=== PATIENT | male | born 1965 | race Caucasian/White ===

== ENCOUNTER 2017-11-25 17:44 | Emergency (ER) | payer BC ==
[2017-11-25 18:24] VITALS: BP 129/84
[2017-11-25] MEDS ORDERED: Fluorescein Sod TOPICAL 0.6* 0.6 MG TEST OPHTHALMIC ONE (18:50)
[2017-11-25] MEDS ORDERED: Tetan/Diph/Pertus SYR(Tdap)* 0.5 ML SYR(BOOSTRIX) use SYR IM ONE (18:51)
[2017-11-25] MEDS ORDERED: Tetracaine 0.5% OPTH.SOL 4 ML* 1 DROP BTL RIGHT EYE ONE (18:51)
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
== END 2017-11-25 19:24 | disposition left against medical advice (07) ==
LOC: UCCORT 17:44
DX: T15.01XA Foreign body in cornea, right eye, initial encounter (principal); S05.91XA Unspecified injury of right eye and orbit, initial encounter; F17.210 Nicotine dependence, cigarettes, uncomplicated; Z88.1 Allergy status to other antibiotic agents; W39.XXXA Discharge of firework, initial encounter; Y92.9 Unspecified place or not applicable
CPT/HCPCS: 90471; 90715; 99212; A9270-GY; G0463

== ENCOUNTER 2018-02-28 21:48 | Emergency (ER) | payer BC ==
[2018-02-28 21:56] VITALS: BP 125/80
[2018-02-28] MEDS ORDERED: Clarithromycin TAB* 500 MG PO ONE (22:03)
[2018-02-28] MEDS ORDERED: predniSONE TAB* 20 MG PO ONE (22:04)
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
== END 2018-02-28 22:12 | disposition home or self-care (01) ==
LOC: UCCORT 21:48
DX: J20.9 Acute bronchitis, unspecified (principal); J32.9 Chronic sinusitis, unspecified; Z88.1 Allergy status to other antibiotic agents; F17.210 Nicotine dependence, cigarettes, uncomplicated
CPT/HCPCS: 99212; A9270-GY; G0463; J7512

== ENCOUNTER 2018-07-28 19:26 | Emergency (ER) | payer BC ==
[2018-07-28 19:34] VITALS: BP 112/73
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
[2018-07-28] MEDS ORDERED: Naproxen TAB* 250 MG PO ONE (20:55)
--- NOTE | 2018-07-29 09:17 | UC ---
- EKG/XRAY/CT XRAY: Shoulder and cervical - No acute osseous injury Course/Dx - Diagnoses Provider Diagnoses: Left shoulder tendonitis, Left cervical radiculopathy Discharge - Sign-Out/Discharge Documenting (check all that apply): Post-Discharge Follow Up All imaging exams completed and their final reports reviewed: Yes - Discharge Plan Condition: Stable Disposition: HOME Prescriptions: Naproxen [Naprosyn 500 mg tab] 500 mg PO BID PRN #30 tablet PRN Reason: Pain Patient Education Materials: Cervical Radiculopathy (ED), Tendinitis (ED) Referrals: Guillaume Escobar MD [Primary Care Provider] - As Soon As Possible Additional Instructions: official XR reading pending - continue supportive care and follow up with PCP blood work pending - Billing Disposition and Condition Condition: STABLE Disposition: Home
[2018-07-29 10:28] LABS: ABS Basophils 0.1 10^3/ul (0-0.2); ABS Eosinophils 0.3 10^3/ul (0-0.6); ABS Lymphocytes 3.5 10^3/ul (1.0-4.8); ABS Monocytes 0.6 10^3/ul (0-0.8); ABS Neutrophils 3.2 10^3/ul (1.5-7.7); ABS Nucleated RBC 0 10^3/ul; Eosinophil % 3.3 %; Hematocrit 47 % (42-52); Hemoglobin 15.7 g/dl (14.0-18.0); Lymphocyte % 45.7 %; Mean Corpuscular HGB Conc 34 g/dl (31-36); Mean Corpuscular Hemoglobin 32 pg (27-31); Mean Corpuscular Volume 94 fL (80-94); Mean Platelet Volume 10.8 fL (7.4-10.4); Nucleated Red Blood Cells % 0; Platelet Count 200 10^3/ul (150-450); Red Blood Count 4.94 10^6/ul (4.00-5.40); Red Cell Distribution Width 14 % (10.5-15); White Blood Count 7.7 10^3/ul (3.5-10.8)
[2018-07-29 11:05] LABS: Albumin 4.3 g/dL (3.2-5.2); Calcium 9.5 mg/dL (8.6-10.3); Potassium 4.3 mmol/L (3.5-5.0); Total Bilirubin 0.6 mg/dL (0.2-1.0)
[2018-07-29 11:11] LABS: BUN/Creatinine Ratio 5.3 (8-20); EGFR African American 130.8 (>60); EGFR Non-African American 108.1 (>60); Globulin 2.1 g/dL (2-4); Total Protein 6.4 g/dL (6.4-8.9)
[2018-07-29 17:51] LABS: Erythrocyte Sed Rate 2 mm/Hr (0-20)
== END 2018-07-28 21:05 | disposition home or self-care (01) ==
LOC: UCCORT 19:26
DX: M75.92 Shoulder lesion, unspecified, left shoulder (principal); M54.12 Radiculopathy, cervical region; F17.210 Nicotine dependence, cigarettes, uncomplicated; Z88.1 Allergy status to other antibiotic agents; Z79.82 Long term (current) use of aspirin
CPT/HCPCS: 36415; 72050; 80053; 85025; 85652; 93005; 99212; A9270-GY; G0463